=== PATIENT | male | born 1955 | race Caucasian/White ===

== ENCOUNTER 2019-06-10 16:35 | Inpatient (IN) ==
[2019-06-10] MEDS ORDERED: ZOFRAN IV ONE (16:58)
[2019-06-10] MEDS ORDERED: MORPHINE IV ONE ×2 (16:58→17:59)
--- NOTE | 2019-06-10 17:32 | Diag Imaging Result Doc PS360 ---
EXAM: XRAY PELVIS W/HIP 2-3VW RT HISTORY: fall R hip deformity TECHNIQUE: Two views COMPARISON: None. FINDINGS: There is an intertrochanteric fracture to the right hip. The femoral head remains in the acetabulum. The femoral shaft is superiorly placed and rotated. No widening of the pubic symphysis. No other fracture. IMPRESSION: Intertrochanteric fracture to the right hip. Electronically signed by Reymundo Hurtado 06/10/2019 5:29 PM
--- NOTE | 2019-06-10 18:08 | PROVIDER DOCUMENTATION ---
This chart was entered by Aida Costa Scribe, acting as scribe for Onofre Barlow MD. HPI-Musculoskeletal Pain/Inj - GENERAL Chief Complaint: Hip Pain Stated Complaint: FALL FROM STANDING/HIP PAIN Time Seen by Provider: 06/10/19 16:45 Source: patient, EMS - HX OF PRESENT ILLNESS-MUSKULOSKELTAL Nature of Presenting Problem: 63 y/o male presents to ED with dull R hip pain onset 1 hour prior to arrival due to fall. Pt reports he tripped and fell. Pt states he hit his head on concrete. Pt denies loss of consciousness. Pt reports he called EMS because he could not get up. Pt states he last ate and drank "a couple hours ago." Pt is alert and oriented. Quality of Pain: reports: dull Severity in ED: moderate, severe Onset/Duration: 1 hour ago Timing: still present, constant Modifying Factors: worse with: movement, palpation Any recent injury?: Yes (fall) Locality of Occurance: Home Similar Symptoms Previously?: No Recently seen or treated by another doctor?: No - FALL INJURY Location of Pain/Injury: reports: lower extremity Pain Radiation: reports: no radiation Reason for Fall: reports: tripped Symptoms prior to fall:: reports: none Loss of Consciousness: no loss of consciousness Injury Associated Symptoms: reports: joint pain (R hip) - HIP/PELVIS PAIN/INJURY Hip Pain Location: reports: hip (R) Pain Radiation: reports: no radiation Context / Method of Injury: reports: fall Associated Symptoms: reports: denies symptoms - LOWER EXTREMITY PAIN/INJURY Lower Extremities Pain: hip: right Context / Method of Injury: reports: fell Associated Symptoms: reports: denies symptoms Review of Systems - Adult - REVIEW OF SYSTEMS - ADULT Constitutional: denies: chills, fever Eyes: reports: no symptoms reported Ears, Nose, Mouth & Throat: reports: no symptoms reported Cardiovascular: denies: chest pain, palpitations Respiratory: denies: cough, shortness of breath Gastrointestinal: denies: abdominal pain, diarrhea, nausea, vomiting Genitourinary: reports: no symptoms reported Musculoskeletal: reports: joint pain (R hip). denies: back pain Integumentary: reports: no symptoms reported Neurological: denies: dizziness/vertigo, seizure Psychiatric: reports: no symptoms reported Endocrine: reports: no symptoms reported Hematologic/Lymphatic: reports: no symptoms reported Allergic/Immunologic: reports: no symptoms reported All Other Systems: Reviewed and Negative Past History - Adult - PAST MEDICAL HISTORY-ADULT Review of Records: reports: Old Records Reviewed, Nursing Assessment Review, Med ications Reviewed Major Childhood Illnesses: reports: denies history Gastrointestinal: reports: GERD - PRIOR SURGERIES/PROCEDURES Surgical/Procedure History: reports: none - IMMUNIZATION STATUS Childhood Immunizations: See Nurse Assessment Flu Vaccine: See Nurse Assessment - FAMILY HISTORY Family History: reviewed, not pertinent - SOCIAL HISTORY Smoking: greater than 1 pack/day Provider spent 3-5 mins advising pt. on dangers of tobacco.: Discussed manners to quit use, and f/u contacts for add'l counseling. Substance Use: alcohol Alcohol Use Frequency: 3-4 times a week Living Situation: family Physical Exam-Injury Related - Physical Exam-Injury Related Initial Vital Signs Reviewed: Yes General Appearance: appears well, alert, no apparent distress Eyes: PERRL/EOMI, pink conjunctivae Head, Ears, Nose, Mouth & Throat: moist mucous membranes, other (dried blood and mild active bleeding from abrasions to R periorbital region and R forehead) Neck: non-tender, full range of motion Respiratory: chest non-tender, lungs clear, normal breath sounds Cardiovascular: normal peripheral pulses, regular rate, rhythm Abdominal Exam: normal bowel sounds, non tender, soft Back Exam: normal inspection, no CVA tenderness, no vertebral tenderness Extremity: deformity (external rotation of R hip), tenderness (R hip), other (significant shortening of the RLE). negative: normal range of motion (decreased ROM of R hip), normal gait (cannot walk/bear weight) Integumentary: normal color, warm/dry, abrasion (dried blood and mild active bleeding from abrasions to R periorbital region and R forehead) Neurologic: slasher runner II-XII nml as tested, grossly normal, no motor/sensory deficits Psych/Mental Status: normal mood/affect, normal thought content, normal thought process, oriented x 3 Progress - PLAN OF CARE/RESULTS Progress/Plan/Lab Results: Vital Signs - 8 hr 06/10/19 16:40 Pulse Rate 66 Respiratory Rate 18 Blood Pressure 107/62 O2 Sat by Pulse Oximetry 96 Orders Category Date Time Status Nursing- Obtain EKG ONCE Care 06/10/19 17:20 Active CHEST-PORTABLE [RAD] Stat Exams 06/10/19 17:[address] HEAD/C-SPINE W/O CONTRAST [CT] Stat Exams 06/10/19 17:20 Ordered XRAY PELVIS W/HIP 2-3VW RT [RAD] Stat Exams 06/10/19 16:58 Completed CBC WITH DIFF [HEME] Stat Lab 06/10/19 17:20 Uncollected COMPREHENSIVE METABOLIC PANEL [CHEM] Stat Lab 06/10/19 17:20 Uncollected PROTIME WITH INR [COAG] Stat Lab 06/10/19 17:20 Uncollected PTT [COAG] Stat Lab 06/10/19 17:20 Uncollected URINALYSIS W/POSS RFLX CULT [URINALYSIS] Stat Lab 06/10/19 17:20 Uncollected Morphine Med 06/10/19 17:59 Discontinued 2 mg IV NOW ONE Morphine Med 06/10/19 16:58 Discontinued 4 mg IV NOW ONE Ondansetron [Zofran] Med 06/10/19 16:58 Discontinued 8 mg IV NOW ONE EKG [EKG] Stat Ther 06/10/19 17:20 Ordered - XRAY 1 XRAY Study: Pelvis, Hip Impression: See EMR Report ([facility] - [address] [address], [address], [place] [address] [facility] - [address] [place] [address] Department of Imaging Patient: DONIS MASON Date: 06/10/19#: [id number] : 1955DM Status: PRE ERAcct#: [id number] Age/Sex: 63/MRoom/Bed: Loc: ED Ordering Physician: Onofre Barlow MD Family Physician: Won Peoples MD Reason for Procedure: fall R hip deformity ___ Signed EXAM: XRAY PELVIS W/HIP 2-3VW RT HISTORY: fall R hip deformity TECHNIQUE: Two views COMPARISON: None. FINDINGS: There is an intertrochanteric fracture to the right hip. The femoral head remains in the acetabulum. The femoral shaft is superiorly placed and rotated. No widening of the pubic symphysis. No other fracture. IMPRESSION: Intertrochanteric fracture to the right hip. Electronically signed by Reymundo Hurtado 06/10/2019 5:29 PM 06/10/19 172 Interpreting Physician: Reymundo Hurtado MD Dictated Date/Time: 06/10/19 172 cc: Onofre Barlow MD; Won Peoples MD) 2 XRAY Study: Chest Impression: See EMR Report - CT/MRI 1 CT Study: Cervical Spine, Head Impression: See EMR Report - CONSULTS/PCP/HOSPITALIST Notification #1 *Consult/PCP/Hospitalist*: Dr. Mckenzie Time Discussed: 17:27 Reason/Comments: Intertrochanteric fracture to the right hip. Consult Disposition: Admit #2 Consult: Dr. Appiah Time Discussed: 17:37 Reason/Comments: Intertrochanteric fracture to the right hip. Consult Disposition: Admit Departure - Departure Date of Disposition Decision: 06/10/19 Time of Disposition Decision: 17:31 DIAGNOSIS: Intertrochanteric fracture of right hip Qualifiers: Encounter type: initial encounter Fracture type: closed Fracture alignment: displaced Qualified Code(s): S72.141A - Displaced intertrochanteric fracture of right femur, initial encounter for closed fracture Fall Qualifiers: Encounter type: initial encounter Qualified Code(s): W19.XXXA - Unspecified fall, initial encounter Disposition: ADMITTED INPATIENT 09 Certified Medical Emergency: Emergent Condition: Stable Referrals and Follow-Ups: Won Peoples MD [Primary Care Provider] - Discharge Education: Steps to Quit Smoking, [id number] - Critical Care Note This patient required my direct & personal management of CC.: No Attestation - Physician/ CELESTINO Attestation Patient care was provided by Advanced Practice Provider:: No The physician spent face to face time with patient:: Yes Advanced Practice Provider documentation review:: Supervising physician onsite and consulted in the evaluation and care of this patient. The physician did have a face to face encounter with the patient. This chart was documented by the indicated scribe, (Aida Costa, Doug) and accurately reflects the services I performed and decisions made by me, Onofre Barlow MD, as attested by the provider's signature.
--- NOTE | 2019-06-10 18:17 | Diag Imaging Result Doc PS360 ---
EXAM: CHEST-PORTABLE HISTORY: pre-op TECHNIQUE: Two views COMPARISON: None. FINDINGS: The lungs are well expanded. No contusion. No pneumothorax. The heart is not enlarged. The vessels are not distended. There are no infiltrates. No effusion identified. IMPRESSION: Negative exam. Electronically signed by Reymundo Hurtado 06/10/2019 6:15 PM
[2019-06-10 18:23] LABS: BASO# 0.04 X1000 (0.0-0.2); BASO% 0.2 % (0.0-0.8); EOS# 0.23 X1000 (0.0-0.7); EOS% 1.1 % (0.0-10.0); HEMATOCRIT 38.1 % (42.0-52.0); HEMOGLOBIN 13.5 g/dL (14.0-18.0); IMM GRAN# 0.06 X1000 (0.0-0.04); IMM GRAN% 0.3 % (0.0-0.5); LYMPH# 1.58 X1000 (1.2-3.4); LYMPH% 7.6 % (20.5-51.1); MCH 33.4 PG (27-31); MCHC 35.4 g/dL (33-37); MCV 94.3 FL (81-99); MONO# 1.11 X1000 (0.11-0.59); MONO% 5.4 % (1.7-9.3); MPV 9.1 FL (7.4-10.4); NEUT# 17.66 X1000 (1.4-6.5); NEUT% 85.4 % (42.2-75.2); PLT 290 X1000 (130-400); RBC 4.04 XMIL (4.7-6.1); RDW 11.2 % (11.5-14.5); WBC 20.68 X1000 (4.8-10.8)
[2019-06-10 18:30] LABS: INR 0.96; PROTIME 12.9 Seconds (11.0-16.0)
[2019-06-10 18:31] LABS: PTT 27.1 Seconds (22.3-41.8)
--- NOTE | 2019-06-10 18:41 | HISTORY AND PHYSICAL ---
PRIMARY CARE PHYSICIAN: Won Peoples MD. CHIEF COMPLAINT: Intractable right hip pain. HISTORY OF PRESENT ILLNESS: A 63-year-old white male, with past medical history significant for reflux disease, who presents for evaluation of above-mentioned symptoms. Current history of present illness began this afternoon after the [employer] game. The patient states he arose without incident and walked outside to smoke a cigarette. Upon doing so, patient stepped on the edge of the stair and fell to the ground. Upon falling, he struck his right hip and his head. He denied loss of consciousness. Upon falling, patient was unable to rise from the lying position. Ultimately, patient's neighbor found him and EMS was contacted. The patient was brought to the emergency department for further evaluation and management. X-ray was immediately performed confirming an intertrochanteric fracture of the right hip. Patient will be admitted to the hospital for full evaluation and management of this condition. Of note, patient has a history of alcoholism. He states this is controlled at the present time. He did have approximately 3 beers today during the game. He states that he intermittently does have alcohol, but denies any evidence of withdrawal after multiple days of cessation. He denies additional symptoms currently, including fevers, chills, nausea, vomiting, shortness of breath, chest discomfort, palpitations, neurological deficits, dysuria, hematuria, pyuria, and change in bowel movements. PAST MEDICAL HISTORY: 1. History of asthma as a child. 2. Family history of coronary artery disease. 3. Reflux disease. 4. History of alcoholism. At present time, patient describes himself as a recovering alcoholic, but without being alcohol free. CURRENT MEDICATIONS: Pantoprazole 40 mg daily. ALLERGIES: Patient answered no known drug allergies. FAMILY HISTORY: The patient's father passed at age 82 secondary to complications of pneumonia and congestive heart failure. He had a history of coronary artery disease. Patient's mother passed at age 90 secondary to "old age". SOCIAL HISTORY: The patient works at [employer]. He has smoked 1-1/2 packs per day for 30 years. As above, he occasionally uses alcohol. He denies illicit drug use. REVIEW OF SYSTEMS: A 12 point review of systems was performed. Pertinent positives and negatives are noted in History of Present Illness. PHYSICAL EXAMINATION: VITAL SIGNS: Temperature afebrile, heart rate 66, respirations 18, blood pressure is 107/62. GENERAL: Well nourished, well developed, no acute distress. HEENT: Normocephalic. Trauma to the right scalp with an abrasion, but no evidence of hematoma or intracranial abnormality. Pupils equally round, reactive to light. Extraocular muscles intact. Sclerae anicteric. Neoga conjunctivae. Oral and nasopharynx clear without exudate. NECK: Supple. No lymphadenopathy. No thyromegaly. No bruits auscultated. CARDIOVASCULAR: Regular rate and rhythm. No significant murmurs, rubs, or gallops. PULMONARY: Clear to auscultation bilaterally. ABDOMEN: Soft, nontender, nondistended. Positive bowel sounds. EXTREMITIES: Moves bilateral upper extremities and left lower extremity well. The right lower extremity is externally rotated. No significant clubbing, cyanosis, or edema. 2+ pulses bilaterally. NEUROLOGIC: Cranial nerves 2 through 12 grossly intact. Motor and sensory grossly intact. PSYCHOLOGIC: Examination is appropriate. LABORATORY DATA: Pending at the time of admission. X-ray of the right hip demonstrates an intertrochanteric fracture. ASSESSMENT AND PLAN: A 63-year-old white male, with past medical history as noted, presents for evaluation of intractable right hip pain. X-ray confirms an intertrochanteric fracture of the right hip. Patient will be admitted to the hospital for full evaluation and surgical intervention. 1. Admit to [address] [place] [address]. 2. Intertrochanteric fracture of the right hip. Dr. Appiah has been consulted. We will place patient is in Gonzalez's traction. We will start morphine as needed. We will plan surgical intervention once able. We will follow up labs and electrocardiogram. 3. Closed head trauma. As above, patient has an abrasion to his right scalp. CT scan of the neck and head are pending. We will follow this up and address as necessary. Neurologically, he is intact. 4. Reflux disease. We will continue patient on pantoprazole therapy. 5. History of alcohol use. As above, patient describes himself as a recovered alcoholic, but one that is not alcohol free. We will monitor patient for evidence of withdrawal while hospitalized. 6. Fluid, electrolytes, nutrition. We will monitor electrolytes. Normal saline at KVO. Regular diet with n.p.o. after midnight. 7. Prophylaxis. We are unable to place sequential compression devices. Lovenox will be held until after surgical intervention. cc: Angel Mckenzie MD
[2019-06-10 18:42] LABS: ESTIMATED GFR > 60
[2019-06-10 18:44] LABS: AGAP 15; ALBUMIN 4.2 g/dL (3.5-5.0); ALKALINE PHOSPHATASE 36 U/L (32-122); BUN 5 mg/dL (8-22); CALCIUM 8.2 mg/dL (8.8-10.2); CHLORIDE 86 mmol/L (98-107); COSMO 252; CREATININE 0.6 mg/dL (0.7-1.2); GLUCOSE 98 mg/dL (70-104); GOT 28 U/L (10-34); GPT 11 U/L (10-44); SODIUM 127 mmol/L (136-145); TCO2 26 mmol/L (25-35); TOTAL BILIRUBIN 0.18 mg/dL (0.20-1.00); TOTAL PROTEIN 6.3 g/dL (6.3-8.3)
--- NOTE | 2019-06-10 18:59 | Diag Imaging Result Doc PS360 ---
EXAM : CT HEAD/C-SPINE W/O CONTRAST HISTORY: head injury/pain TECHNIQUE: 1. CT head without intravenous contrast 2. CT cervical spine without contrast COMPARISON: None. FINDINGS: Head: No parenchymal hemorrhage. No epidural or subdural hematoma. No subarachnoid hemorrhage. No mass identified on this noncontrasted exam. No hydrocephalus. No skull fracture. Cervical spine: There is good alignment to the cervical spine. No precervical soft tissue swelling. No subluxation. No fracture. Small degenerative bone spurs. There is debris in the left external auditory canal. Emphysema and scarring in the upper lungs. IMPRESSION: Head: No hemorrhage. No injury. Cervical spine: No acute fracture. This exam was performed using automated exposure control, adjustment of mA or kV according to patient size, and/or use of iterative reconstruction technique. Electronically signed by Reymundo Hurtado 06/10/2019 6:57 PM
[2019-06-10] MEDS ORDERED: MORPHINE IV PRN (19:01)
[2019-06-10] MEDS ORDERED: NS 1,000 ML IV SCH (19:01)
[2019-06-10] MEDS: NICODERM PATCH TD SCH (19:56)
[2019-06-10] MEDS ORDERED: DILAUDID IV PRN (20:19)
[2019-06-10] MEDS ORDERED: OFIRMEV 1000 MG/ISOTONIC SOLN 1,000 MG/100 ML BOTTLE IV PRN (22:34)
[2019-06-10] MEDS: DILAUDID IV PRN (23:25)
[2019-06-10] MEDS: ZOFRAN IV PRN (23:26)
[2019-06-10] MEDS: OFIRMEV 1000 MG/ISOTONIC SOLN 1,000 MG/100 ML BOTTLE IV PRN (23:26)
[2019-06-11 00:17] LABS: URINE SOURCE CATH
[2019-06-11 00:26] LABS: BILIRUBIN URINE NEGATIVE (NEGATIVE); BLOOD URINE NEGATIVE (NEGATIVE); COLOR YELLOW; GLUCOSE URINE NEGATIVE (NEGATIVE); KETONE URINE 10 mg/dL (NEGATIVE); LEUKOCYTES URINE NEGATIVE (NEGATIVE); NITRITE URINE NEGATIVE (NEGATIVE); PH URINE 5.5; PROTEIN URINE NEGATIVE (NEGATIVE); SP GRAVITY URINE 1.015; TURBIDITY URINE CLEAR (CLEAR); UROBILINOGEN URINE NORMAL (NORMAL)
[2019-06-11 00:29] LABS: UR EPITHELIAL CELLS <10 /HPF (<10); URINE BACTERIA NEGATIVE /HPF; URINE RBC <10 /HPF (<10); URINE WBC <10 /HPF (<10)
[2019-06-11 00:50] LABS: URINE CASTS NONE SEEN; URINE CRYSTALS NONE SEEN; URINE SMALL ROUND CELLS NONE SEEN; URINE YEAST NONE SEEN
[2019-06-11] MEDS: DILAUDID IV PRN ×5 (02:33→19:51)
[2019-06-11] MEDS: ZOFRAN IV PRN ×4 (05:00→19:52)
--- NOTE | 2019-06-11 05:57 | EKG Report ---
Test Performed on : 06/10/2019 6:43:59 PM Test Reason : pre-op Blood Pressure : / mmHG Vent. Rate : 087 BPM Atrial Rate : 087 BPM P-R Int : 140 ms QRS Dur : 076 ms QT Int : 372 ms P-R-T Axes : 087 065 086 degrees QTc Int : 447 ms Normal sinus rhythm. Nonspecific ST abnormality Abnormal ECG When compared with ECG of 08-JUL-2012 16:49, RSR' pattern in V1 is no longer present Unconfirmed Result
[2019-06-11] MEDS ORDERED: SODIUM CHLORIDE 0.9% INJ ONE (06:40)
[2019-06-11] MEDS ORDERED: PROTONIX IV ONE (06:40)
[2019-06-11] MEDS: OFIRMEV 1000 MG/ISOTONIC SOLN 1,000 MG/100 ML BOTTLE IV PRN (06:45)
[2019-06-11 06:49] LABS: BASO# 0.02 X1000 (0.0-0.2); BASO% 0.2 % (0.0-0.8); EOS# 0.01 X1000 (0.0-0.7); EOS% 0.1 % (0.0-10.0); HEMATOCRIT 34.9 % (42.0-52.0); IMM GRAN# 0.02 X1000 (0.0-0.04); IMM GRAN% 0.2 % (0.0-0.5); LYMPH# 0.64 X1000 (1.2-3.4); LYMPH% 5.7 % (20.5-51.1); MCH 32.9 PG (27-31); MCHC 34.4 g/dL (33-37); MCV 95.6 FL (81-99); MONO# 0.79 X1000 (0.11-0.59); MPV 9.5 FL (7.4-10.4); NEUT# 9.78 X1000 (1.4-6.5); NEUT% 86.8 % (42.2-75.2); PLT 253 X1000 (130-400); RBC 3.65 XMIL (4.7-6.1); RDW 11.2 % (11.5-14.5); WBC 11.26 X1000 (4.8-10.8)
[2019-06-11] MEDS ORDERED: PROTONIX PO SCH (07:00)
[2019-06-11 07:05] LABS: ESTIMATED GFR > 60
[2019-06-11 07:11] LABS: AGAP 18; ALBUMIN 4.1 g/dL (3.5-5.0); ALKALINE PHOSPHATASE 48 U/L (32-122); BUN 5 mg/dL (8-22); CALCIUM 8.4 mg/dL (8.8-10.2); CHLORIDE 87 mmol/L (98-107); COSMO 256; CREATININE 0.5 mg/dL (0.7-1.2); GLUCOSE 95 mg/dL (70-104); GOT 43 U/L (10-34); GPT 14 U/L (10-44); POTASSIUM 4.4 mmol/L (3.5-5.1); SODIUM 129 mmol/L (136-145); TCO2 24 mmol/L (25-35); TOTAL BILIRUBIN 0.42 mg/dL (0.20-1.00); TOTAL PROTEIN 6.2 g/dL (6.3-8.3)
[2019-06-11 07:23] LABS: LYMPHS 6 % (21-51); MONO 4 % (1-9); SEGS 90 % (42-75)
[2019-06-11] MEDS ORDERED: ZOFRAN IV PRN ×2 (07:44→12:44)
--- NOTE | 2019-06-11 07:48 | PROGRESS NOTE ---
DATE: 06/11/2019 SUBJECTIVE: 1. Mr. Gottlieb came in and was admitted yesterday. He had slip and fall and he struck his right hip, mechanical fall. He has an area of ecchymosis around his right eye and suffered a right intertrochanteric fracture. Dr. Appiah is orthopedic consult. He is in Gonzalez's traction. Getting morphine, but in quite a bit of pain, I think the plan is for repair today. 2. Closed head trauma and abrasion in his right scalp. CT scan of the neck did not show any head injury and no cervical spine fracture. 3. Gastroesophageal reflux disease. Right now, he is on Protonix 40 mg IV q. 12 hours. 4. History of alcohol use. He is a recovering alcoholic. He is not completely alcohol-free. We will monitor for evidence of alcohol withdrawal. 5. Fluid, electrolytes, nutrition look okay. He is getting normal saline at 45 mL an hour, and he is on compression stockings for DVT prophylaxis. REVIEW OF HIS ORDERS: He is on nicotine patch getting Dilaudid 1 mg IV q. 3 hours p.r.n. We went up on the Protonix to 40 mg twice a day for his reflux. REVIEW OF LAB: Hematocrit 34, hemoglobin 12, white count is 11,260. When he first came in, it was 20,000. I think that was just demargination from stress and platelet count is 253,000. Electrolytes look good. Renal function good. I think he is okay. He is good to go to surgery today. cc: MD Angel Perea MD
--- NOTE | 2019-06-11 09:02 | ORTHOPAEDICS CONSULTATION ---
DATE: 06/11/2019 CHIEF COMPLAINT: Right hip pain. CLINICAL HISTORY: The patient is a pleasant, 63-year-old male, who was at home yesterday, coming down the stairs of his apartment when he missed a step and fell. He did hit his head while falling, and states that he landed on his right hip. He denies any loss of consciousness with this event. He states he initially did not have any pain in his right hip, but when he went to stand up, he was simply unable due to not being able to bear weight on this right hip. He states that a neighbor called EMS, who then transported him to [facility], where x-rays revealed a right intertrochanteric fracture. Orthopedics was consulted for this. He was then admitted to the hospital. He does have a past medical history of alcoholism that is controlled at the time, though he is drinking beer on a fairly frequent basis. He denies any evidence of withdrawal. HOME MEDICATIONS: The patient states that he only takes the Protonix at home. ALLERGIES: No known drug allergies. PAST MEDICAL HISTORY: The only thing that he verbalizes to me is a history of GERD and alcoholism. PAST SURGICAL HISTORY: The patient states the only time he has ever had anesthesia was for an EGD and colonoscopy that was performed this past summer. FAMILY HISTORY: States that his dad's side of family has coronary artery disease. Otherwise, he denies any. SOCIAL HISTORY: The patient works in [employer]. He lives at home by himself, where he is independent. He denies using a cane or a walker for ambulation. He does smoke 1-1/2 packs of cigarettes per day and has for 30 years. He does occasionally use alcohol. He does deny any illicit drug use. REVIEW OF SYSTEMS: A 12-point review of systems was performed and was negative, except as mentioned in the HPI. PHYSICAL EXAMINATION: Vital Signs: Temp of 97.6 degrees, heart rate of 82, respiratory rate 16, blood pressure 135/61. General: He is awake, alert, and cooperative with exam. He has been having some retching that he states is secondary to having an empty stomach and his previous history of GERD. He does not know if he usually gets nauseated with pain medication as he states that he has not previously had any. He is in no acute distress at this time. Extremities: His right lower extremity is shortened and externally rotated. It is in Gonzalez's traction at this time. He has full sensation of his right foot, as well as active dorsiflexion, plantar flexion. He has tenderness to palpation over his right hip, with obvious swelling. There are no open wounds at this time. There is no bruising. He does have some ecchymosis above his right eye from the fall, though there is no palpable hematoma or crepitis. His calf is soft. LABORATORY DATA: His white count was 20.68 yesterday, but has since decreased to 11.26. This is most likely demargination from the recent stress of the fall. His sodium is noted to be 129; it was 127 upon admission. IMAGING: A right hip x-ray reveals intertrochanteric fracture of the right hip. He also had a CT head and neck that revealed no acute fracture or anomaly. IMPRESSION: Right intertrochanteric hip fracture. PLAN: At this point, surgical options were discussed with the patient. Dr. Appiah will be performing an intramedullary nailing of the right femur today in the OR. He will see the patient prior to this. Risks and benefits of surgery were explained, including risk of anesthesia, , bleeding, infection, postoperative stiffness, nerve injury, blood clots, other imponderables. All questions were answered. The patient agreed with the treatment plan. We will proceed with surgery later today. Dictated by MARY Cummins for Itz Appiah MD cc: MD Angel Briggs MD MTDD
[2019-06-11] MEDS: PROTONIX PO SCH ×2 (09:34→22:34)
[2019-06-11] MEDS: NICODERM PATCH TD SCH ×2 (09:44→15:51)
[2019-06-11] MEDS ORDERED: KEFZOL 1 GM/D5W 1 GM/50 ML IVPB ONE (10:44)
[2019-06-11] MEDS ORDERED: DIPRIVAN 1% ONE (10:46)
[2019-06-11] MEDS ORDERED: XYLOCAINE-MPF 2% ONE (10:47)
[2019-06-11] MEDS ORDERED: FENTANYL ONE (11:12)
[2019-06-11] MEDS ORDERED: NS 1,000 ML ONE (12:13)
--- NOTE | 2019-06-11 12:35 | OPERATIVE NOTE ---
PROCEDURE DATE: 06/11/2019 PREOPERATIVE DIAGNOSIS: Right intertrochanteric hip fracture. POSTOPERATIVE DIAGNOSIS: Right intertrochanteric hip fracture. PROCEDURE PERFORMED: Right trochanteric fixation nail fixation of the hip. SURGEON: Micah Appiah M.D. ANESTHESIA: General. COMPLICATIONS: None. PROCEDURE IN DETAIL: This 63-year-old male, status post a right intertrochanteric hip fracture, presents for surgical stabilization. Risks, benefits, and no guarantees were discussed, and he is willing to proceed. He was taken to the operating room, and satisfactory anesthesia obtained. He was placed on the [place] table, and a time-out taken to confirm operative site, procedure, and patient. The right hip was prepped and draped in the usual sterile fashion. Gentle longitudinal traction and neutral alignment was utilized to reduce the hip fracture under fluoroscopic guidance. After a suitable time-out, a lateral incision was made proximal to the greater trochanter, and dissection carried down to the tip of the trochanter, and a TFN guide pin advanced down the intramedullary canal. This was reamed with the entry reamer, and exchanged for a ball- tip guidewire. The guidewire was reamed with a 12 mm reamer, and a 400 length nail selected. This was inserted over the guidewire, and the guidewire removed. An accessory lateral incision was made distal to the lesser trochanter, and the helical blade guide advanced down to bone. A guide pin was placed across the fracture site and nail, and into the central aspect of the femoral neck and head, with care taken to avoid any articular penetration. This was reamed, and a 100 mm helical blade inserted over the guide. The antirotation screw was set proximally, and the helical blade guide removed. Traction was adjusted on the table to restore leg lengths, and a distal interlocking screw placed through the dynamic slot through an accessory lateral portal using fluoroscopic guidance. A 44 mm screw was placed with good bicortical fixation. The C-arm was used to verify accurate fracture reduction and hardware placement. The wounds were then irrigated with irrigant, and closed in layers with 2-0 Vicryl and skin chidi. Sterile dressings were applied, and he was recovered from anesthesia and transferred to the recovery room in stable condition. No intraoperative complications were noted. Instrument count and sponge count were correct at the time of closure. cc: MD Angel Briggs MD
[2019-06-11] MEDS ORDERED: MILK OF MAGNESIA PO PRN (12:44)
[2019-06-11] MEDS ORDERED: MORPHINE IV PRN (12:44)
[2019-06-11] MEDS ORDERED: HALDOL IV PRN (12:45)
[2019-06-11] MEDS: NS 1,000 ML IV SCH (13:01)
[2019-06-11] MEDS: TYLENOL PO SCH ×2 (13:15→22:33)
[2019-06-11] MEDS: KEFZOL 1 GM/D5W 1 GM/50 ML IVPB IV SCH (18:12)
[2019-06-11] MEDS: COLACE PO SCH (22:33)
[2019-06-11] MEDS: PERIDEX MT SCH (22:34)
[2019-06-11] MEDS: OXY IR PO PRN (23:46)
[2019-06-12] MEDS: KEFZOL 1 GM/D5W 1 GM/50 ML IVPB IV SCH ×3 (01:52→11:48)
[2019-06-12] MEDS: OXY IR PO PRN ×5 (03:08→22:37)
[2019-06-12] MEDS: TYLENOL PO SCH ×3 (06:31→22:41)
[2019-06-12] MEDS: XARELTO PO SCH (06:31)
[2019-06-12] MEDS: NS 1,000 ML IV SCH (06:49)
[2019-06-12 06:56] LABS: ESTIMATED GFR > 60; HEMATOCRIT 27.1 % (42.0-52.0); HEMOGLOBIN 9.3 g/dL (14.0-18.0)
[2019-06-12] MEDS ORDERED: PROTONIX PO SCH (07:00)
[2019-06-12 07:20] LABS: AGAP 11; BUN 4 mg/dL (8-22); CALCIUM 7.9 mg/dL (8.8-10.2); CHLORIDE 85 mmol/L (98-107); COSMO 246; CREATININE 0.5 mg/dL (0.7-1.2); GLUCOSE 96 mg/dL (70-104); POTASSIUM 4.1 mmol/L (3.5-5.1); SODIUM 124 mmol/L (136-145); TCO2 28 mmol/L (25-35)
--- NOTE | 2019-06-12 07:21 | ORTHOPAEDICS PROGRESS NOTE ---
DATE: 06/12/2019 SUBJECTIVE: Mr. Gottlieb is seen status post TFN fixation of the hip. OBJECTIVE: He is afebrile with stable vital signs. The hematocrit is 27 postop. PLAN: We will plan on mobilizing him today. He can be discharged to a rehab center over the weekend or early next week if a bed is available. I will need to follow up with him in the office in roughly 2 weeks. He can be partial weightbearing or touchdown weightbearing on the right lower extremity. cc: MD Angel Briggs MD
--- NOTE | 2019-06-12 08:58 | PROGRESS NOTE ---
DATE: 06/12/2019 SUBJECTIVE: Mr. Gottlieb feels much better. He is eating breakfast. He has a good appetite. No nausea. Very little pain. OBJECTIVE: Vital Signs: Temp 98.6 degrees, pulse 89, respirations 19, blood pressure 128/60. HEENT: Pupils are equal. Neck: No distended neck veins. Lungs: Clear anterolateral. Cardiovascular: Regular rhythm and rate without murmur or S3. Abdomen: Soft. Skin: Warm and dry. Urine Output: 1800 mL. ASSESSMENT AND PLAN: 1. He had a transfemoral nail fixation of the hip. Hope to mobilize him today. Discharge to rehab probably early part of next week. Pain control looks good. 2. Postoperative hematocrit 27, hemoglobin 9.3, so mild blood loss anemia. REVIEW OF ORDERS: A review of his orders, he is getting oxycodone IR 5 mg every 3 hours p.r.n. He is on normal saline at 83 mL an hour. He is on iron 325 mg p.o. with breakfast daily, nicotine patch 21 mg daily, Xarelto 10 mg p.o. daily, Protonix 40 mg b.i.d. He gets acetaminophen IV every 6 hours p.r.n. as well. cc: MD Angel Perea MD
[2019-06-12] MEDS: NICODERM PATCH TD SCH (10:09)
[2019-06-12] MEDS: PROTONIX PO SCH ×2 (10:10→22:38)
[2019-06-12] MEDS: PERIDEX MT SCH ×2 (10:10→22:38)
[2019-06-12] MEDS: DILAUDID IV PRN ×2 (10:10→13:28)
[2019-06-12] MEDS: FERROUS SULFATE PO SCH (10:10)
[2019-06-12] MEDS: COLACE PO SCH (22:37)
[2019-06-13] MEDS: OXY IR PO PRN ×6 (03:17→22:47)
[2019-06-13] MEDS: TYLENOL PO SCH ×3 (05:17→22:00)
[2019-06-13 06:33] LABS: HEMATOCRIT 26.4 % (42.0-52.0); HEMOGLOBIN 9.2 g/dL (14.0-18.0)
[2019-06-13] MEDS: XARELTO PO SCH (06:54)
[2019-06-13] MEDS: PROTONIX PO SCH ×2 (09:08→22:00)
[2019-06-13] MEDS: FERROUS SULFATE PO SCH (09:08)
[2019-06-13] MEDS: PERIDEX MT SCH ×2 (09:08→22:00)
[2019-06-13] MEDS: NICODERM PATCH TD SCH (09:08)
--- NOTE | 2019-06-13 10:48 | PROGRESS NOTE ---
DATE: 06/13/2019 SUBJECTIVE: He is doing better, sitting up in a chair. Pain is much improved. He is eating well, tolerating physical therapy. OBJECTIVE: Vital signs: Remains afebrile. Temperature 97.7 degrees, pulse 89, respirations 16, blood pressure 105/58. HEENT: Pupils are equal and round. Lungs: Clear in all lung [place]ett. Cardiovascular: Regular rhythm and rate without murmur or S3. Abdomen: Soft. Skin: Warm and dry. ASSESSMENT AND PLAN: 1. Had a transfemoral nail fixation on the and is doing well. Continue physical therapy. 2. Postoperative mild blood loss anemia. Hematocrit is 26, hemoglobin 9.2. He is on iron and he is on Xarelto 10 mg p.o. q.24 hours. Hoping to go to rehab on Saturday. cc: MD Angel Perea MD
--- NOTE | 2019-06-13 13:03 | ORTHOPAEDICS PROGRESS NOTE ---
DATE: 06/13/2019 SUBJECTIVE: Mr. Gottlieb is a 63-year-old male who went underwent a right TFN on 06/11/[address] Appiah. He has no complaints other than pain in his leg. OBJECTIVE: He is a well-developed, well-nourished male. His dressings are clean, dry, intact. The leg is neurovascularly intact. ASSESSMENT: Stable right TFN. PLAN: Will continue working with physical therapy. Likely go to rehab in the next few days. cc: MD Angel Holt MD
[2019-06-13] MEDS: NS 1,000 ML IV SCH ×2 (19:54→22:45)
[2019-06-13] MEDS: COLACE PO SCH (22:00)
[2019-06-14] MEDS: NS 1,000 ML IV SCH ×2 (04:59→19:40)
[2019-06-14] MEDS: XARELTO PO SCH (05:18)
[2019-06-14] MEDS: TYLENOL PO SCH ×3 (05:18→20:34)
[2019-06-14] MEDS: NICODERM PATCH TD SCH (08:09)
[2019-06-14] MEDS: FERROUS SULFATE PO SCH (08:09)
[2019-06-14] MEDS: PERIDEX MT SCH ×2 (08:09→20:34)
[2019-06-14] MEDS: PROTONIX PO SCH ×2 (08:09→20:34)
[2019-06-14] MEDS: OXY IR PO PRN ×5 (08:09→22:45)
[2019-06-14 08:47] LABS: HEMATOCRIT 25.1 % (42.0-52.0); HEMOGLOBIN 8.5 g/dL (14.0-18.0)
--- NOTE | 2019-06-14 08:53 | PROGRESS NOTE ---
DATE: 06/14/2019 SUBJECTIVE: Mr. Gottlieb has had a good night, doing well. OBJECTIVE: Remains afebrile. Temperature 97.9 degrees, pulse 82, respirations 16, blood pressure 111/52. Pupils are equal and round. Lungs are clear in all lung barnett. Cardiovascular Examination: Regular rhythm and rate without murmur or S3. Abdomen is soft. Skin is warm and dry. ASSESSMENT AND PLAN: 1. Status post transfemoral nail fixation, doing well, for hip fracture. Continue physical therapy. 2. Postoperative blood loss, which is minimal. REVIEW OF HIS ORDERS: Continue present orders. Hope to go to rehab tomorrow. Hematocrit is 26, hemoglobin 9.2. cc: MD Angel Perea MD
--- NOTE | 2019-06-14 09:58 | ORTHOPAEDICS PROGRESS NOTE ---
DATE: 06/14/2019 SUBJECTIVE: Malik Gottlieb is a 63-year-old male who underwent a right TFN by Dr. Appiah on 06/11/2019. He has no complaints. He is sitting in a chair and is comfortable. States he is improving every day. OBJECTIVE: General: He is a well-developed, well-nourished male. He is alert, oriented, and cooperative with exam. Vital Signs: Stable. He is afebrile. His hemoglobin is 9.2. His hematocrit is 26.4. Extremities: His wounds are clean, dry, and intact without sign of infection. His calf is soft without sign of DVT. He can flex his toes. He has brisk capillary refill and intact sensation to light touch. ASSESSMENT: Stable right TFN. PLAN: He will likely go to rehab probably tomorrow. cc: MD Angel Holt MD
[2019-06-14] MEDS: COLACE PO SCH (20:34)
[2019-06-15] MEDS: NS 1,000 ML IV SCH ×2 (01:16→13:38)
[2019-06-15] MEDS: OXY IR PO PRN ×6 (02:33→22:53)
[2019-06-15] MEDS: XARELTO PO SCH (05:24)
[2019-06-15] MEDS: TYLENOL PO SCH ×3 (06:01→22:06)
[2019-06-15] MEDS: PERIDEX MT SCH ×2 (09:42→22:06)
[2019-06-15] MEDS: PROTONIX PO SCH ×2 (09:42→22:06)
[2019-06-15] MEDS: NICODERM PATCH TD SCH (09:42)
[2019-06-15] MEDS: FERROUS SULFATE PO SCH (09:42)
--- NOTE | 2019-06-15 10:37 | PROGRESS NOTE ---
DATE: 06/15/2019 SUBJECTIVE: Mr. Gottlieb is doing well. Sitting up in a chair, ready go to rehab, eating well. Bowels are moving. No complaints. OBJECTIVE: Temperature 97.7 degrees, pulse 92, respirations 14, blood pressure 117/77. His neck is supple. No distended neck veins. Lungs are clear in all lung barnett. Cardiovascular Examination: Regular rhythm and rate without murmur or S3. Abdomen is soft. Skin is warm and dry. ASSESSMENT AND PLAN: 1. He is status post right transfemoral nail. Doing real well with physical therapy, will be ready for rehabilitation. 2. Mild postoperative hemolytic anemia. Hematocrit is 25, hemoglobin is 8.5. REVIEW OF HIS ORDERS: I do not see any change. He is on Xarelto 10 mg q.24 hours and he is on ferrous sulfate 325 mg daily. cc: MD Angel Perea MD
[2019-06-15] MEDS: COLACE PO SCH (22:06)
[2019-06-16] MEDS: OXY IR PO PRN ×5 (03:28→23:53)
[2019-06-16] MEDS: XARELTO PO SCH (06:17)
[2019-06-16] MEDS: TYLENOL PO SCH ×3 (06:18→19:55)
[2019-06-16] MEDS ORDERED: DULCOLAX PR PRN (08:00)
--- NOTE | 2019-06-16 08:56 | PROGRESS NOTE ---
DATE: 06/16/2019 SUBJECTIVE: Mr. Gottlieb is complaining of constipation. Otherwise, he is eating well. Therapy is going well. He has a little bit of swelling in the left foot. OBJECTIVE: Temperature 97.7 degrees, pulse 93, respirations 20, blood pressure 137/60. HEENT: Pupils are equal and round. Lungs are clear in all lung barnett. Cardiovascular Examination: Regular rhythm and rate without murmur or S3. Urine output is 3100 mL. ASSESSMENT AND PLAN: 1. Status post right transfemoral nail for hip fracture, doing well. Continue physical therapy. 2. Postoperative mild hemolytic anemia. 3. Some constipation. Gave him some milk of magnesia. 4. Note, his hematocrit is 25, hemoglobin 8.5, so we are waiting on rehab possibilities. REVIEW OF HIS ORDERS: He is on Colace 200 mg at bedtime, OxyIR 5 mg q.3 hours p.r.n., ferrous sulfate 325 mg daily, nicotine patch 21 mg daily, Protonix 40 mg twice a day, and Xarelto 10 mg daily. cc: MD Angel Perea MD
[2019-06-16] MEDS: NICODERM PATCH TD SCH (13:10)
[2019-06-16] MEDS: PROTONIX PO SCH ×2 (13:10→20:00)
[2019-06-16] MEDS: FERROUS SULFATE PO SCH (13:10)
[2019-06-16] MEDS: PERIDEX MT SCH ×2 (13:10→19:56)
[2019-06-16] MEDS: COLACE PO SCH (19:56)
[2019-06-17] MEDS: COLACE PO SCH ×2 (02:47→22:19)
[2019-06-17] MEDS: PERIDEX MT SCH ×2 (02:48→08:38)
[2019-06-17] MEDS: OXY IR PO PRN ×5 (03:48→22:18)
[2019-06-17] MEDS: TYLENOL PO SCH ×3 (03:49→22:19)
[2019-06-17] MEDS: XARELTO PO SCH ×2 (03:49→06:31)
[2019-06-17] MEDS: NICODERM PATCH TD SCH (08:38)
[2019-06-17] MEDS: PROTONIX PO SCH ×2 (08:38→22:19)
[2019-06-17] MEDS: FERROUS SULFATE PO SCH (08:38)
--- NOTE | 2019-06-17 16:10 | PROGRESS NOTE ---
DATE: 06/17/2019 SUBJECTIVE: Mr. Gottlieb is doing well. He is actually ambulating with a walker on his own. OBJECTIVE: Vital signs: Temperature 98.5 degrees, remains afebrile, pulse 79, respirations 20, blood pressure 125/70. HEENT: Pupils are equal and round. Lungs: Clear in all lung barnett. Cardiovascular: Regular rhythm and rate without murmur or S3. Urine output is 3500 mL. ASSESSMENT AND PLAN: 1. Status post right transfemoral nail for hip fracture. Doing very well. Tolerating physical therapy. Waiting for rehab bed. 2. Postoperative mild hemolytic anemia, blood loss anemia. Hematocrit stable. 3. Some constipation which is better. 4. Nutrition is good. REVIEW OF ORDERS: I do not see any change. We have him on Xarelto 10 mg q.24 hours and waiting on rehab bed. cc: MD Angel Perea MD
[2019-06-18] MEDS: PERIDEX MT SCH ×2 (01:17→09:19)
[2019-06-18] MEDS: OXY IR PO PRN ×4 (02:12→13:55)
[2019-06-18] MEDS: XARELTO PO SCH (06:24)
[2019-06-18] MEDS: TYLENOL PO SCH (06:24)
[2019-06-18] MEDS: NICODERM PATCH TD SCH (09:18)
[2019-06-18] MEDS: PROTONIX PO SCH (09:18)
[2019-06-18] MEDS: FERROUS SULFATE PO SCH (09:19)
--- NOTE | 2019-06-18 09:20 | PROGRESS NOTE ---
DATE: 06/18/2019 SUBJECTIVE: Mr. Gottlieb is doing very well, sitting up eating breakfast. Bowels are moving well. No complaints. OBJECTIVE: Vital Signs: Temperature 97.9 degrees, pulse 76, respirations 16, blood pressure 115/57. Eyes: Pupils are equal and round. Lungs: Lungs are clear in all lung barnett. Cardiovascular exam: Regular rhythm and rate without murmur or S3. Abdomen: Soft. Skin: Skin is warm and dry. : Urine output was 3600 mL. ASSESSMENT AND PLAN: 1. Status post right transfemoral nail hip fracture, tolerating therapy, doing very well. Waiting on rehabilitation bed. 2. Postoperative mild blood-loss anemia. His hematocrit is stable at 25, hemoglobin 8.5. He is on iron. 3. Constipation, which is resolved. 4. Good nutrition. REVIEW OF HIS ORDERS: I do not see any change. He is on Xarelto 10 mg q. 24 hours. Hopefully, we will have a rehab bed soon. cc: MD Angel Perea MD
[2019-06-18 11:52] VITALS: BP 131/46
--- NOTE | 2019-06-18 13:26 | DISCHARGE SUMMARY ---
ADMISSION DATE: 06/10/2019 DISCHARGE DATE: 06/18/2019 REASON FOR ADMISSION: This is a 63-year-old who came in with intractable hip pain. Past medical history is significant for reflux disease. Presented for evaluation after a mechanical fall. HISTORY OF PRESENT ILLNESS: He came in the afternoon after watching an [employer] football game. He paola without incident, and walked outside to smoke a cigarette. The patient stopped at the edge of the stair, and fell to the ground. Upon falling, he struck his right hip and his head. Denied any loss of consciousness. Unable to rise up out of that position. Called EMS. Brought in. He was found to have intertrochanteric fracture of the right hip. Dr. Appiah evaluated. He had closed head trauma with no sign of intracranial pathology per CT scan without contrast. He has a history of reflux disease. He has a distant history of alcohol. He tolerated the surgery well. It was on 06/11/2019, right trochanteric fixation with nail fixation of the hip. Tolerated physical therapy. No incident. No problem. Had some mild blood loss anemia, hematocrit 25, hemoglobin 8.5. He is on iron, and he was put on Xarelto for anticoagulant. His plan is to go to [facility] for inpatient physical therapy on 06/18/2019. DISCHARGE MEDICATIONS: He will have Tylenol 1000 mg p.o. every 8 hours p.r.n., Colace 200 mg at bedtime, ferrous sulfate 325 mg a day, nicotine patch 21 mg daily, Oxy IR 5 mg every 3 hours p.r.n. pain, Protonix 40 mg just once a day, and Xarelto 10 mg a day for another 20 days. cc: MD Angel Perea MD
== END 2019-06-18 13:58 | DRG 481 ==
LOC: SUPCPDRO → ED 16:35 → 4N 18:26
PROVIDERS: ADMIT Internal Medicine; ATTEND Emergency Medicine